=== PATIENT | male | born 2000 | race Two or more races ===

== ENCOUNTER → 2024-09-12 | Outpatient (CLI) | payer MEDICAID, SELFPAY ==
--- NOTE | 2024-09-12 13:30 | XR_ITS ---
Examination: Foot, left, 3 views Technique: AP, oblique, lateral views foot, 3 views Date and time of exam: September 12, 2024 1401 hours INDICATIONS: Left foot pain beginning 5 months ago. FINDINGS: No fracture Mild osteoarthritis intertarsal joints No erosive arthritis No opaque foreign bodies IMPRESSION: Mild osteoarthritis
== END | disposition home or self-care (01) ==
LOC: CDIM 13:21
PROVIDERS: PCP Nurse Practitioner Primary Care; Referring Provider Nurse Practitioner; Visit Provider Nurse Practitioner
DX: M19.072 Primary osteoarthritis, left ankle and foot (principal)
CPT/HCPCS: 73630

== ENCOUNTER → 2024-11-04 | Outpatient (CLI) | payer MEDICAID, SELFPAY ==
--- NOTE | 2024-11-04 09:30 | XR_ITS ---
Examination: Abdomen sonogram, complete Date and time of exam: November 04, 2024 1022 hours INDICATIONS: Alcohol abuse history. Technique: Multiple real-time grayscale transabdominal sonographic images of the abdomen have been obtained. Findings: Normal gallbladder Normal common bile duct 0.2 cm Pancreatic head 3.1 cm Aorta not enlarged Liver 17 cm fatty infiltration smooth contour no focal liver lesions Normal hepatopedal portal venous flow Patent IVC Right kidney 12.1 cm renal cortex 1.7 cm Left kidney 12.8 cm cortex 1.9 cm Renal parenchymal scar formation Spleen 11.9 cm IMPRESSION: Normal gallbladder Mild hepatomegaly fatty liver
== END | disposition home or self-care (01) ==
LOC: CDIM 09:58
PROVIDERS: PCP Nurse Practitioner Primary Care; Referring Provider Nurse Practitioner Primary Care; Visit Provider Nurse Practitioner Primary Care
DX: K76.0 Fatty (change of) liver, not elsewhere classified (principal); F10.10 Alcohol abuse, uncomplicated
CPT/HCPCS: 76700